=== PATIENT | male | born 1960 | race Two or more races ===

== ENCOUNTER 2024-09-29 10:37 | Inpatient (IN) | payer OTHER ==
[~2024-09-29] VITALS: Ht 172.7 cm; Wt 81.6 kg
[2024-09-29] MEDS ORDERED: FAMOTIDINE20 MG PO (11:02)
[2024-09-29] MEDS ORDERED: QUETIAPINE FUMA50 MG (11:02)
[2024-09-29] MEDS ORDERED: TAMSULOSIN HCL0.4 MG PO (11:02)
[2024-09-29] MEDS ORDERED: PIPERACILLIN/TAZOBACTAM SODIUM 3.375 GM VIAL IV ONE (11:30)
[2024-09-29] MEDS ORDERED: KETOROLAC TROMETHAMINE 60 MG VIAL IM ONE (11:30)
[2024-09-29] MEDS ORDERED: 0.9 % SODIUM CHLORIDE 1,000 ML IV SCH (11:30)
[2024-09-29 11:52] LABS: HEMOGLOBIN 16.8 g/dL (13-16.00); MEAN CELL VOLUME 90.5 fL (80.0-100.00); MEAN CORPUSCULAR HGB CONC 34.3 g/dl (32.0-36.0); PLATELET COUNT 259 K/uL (150-450); RED BLOOD COUNT 5.41 M/uL (4.00-6.00); RED CELL DISTRIBUTION WIDTH 14.5 % (11.5-14.5)
[2024-09-29 13:20] LABS: BILIRUBIN TOTAL 3.55 mg/dL (0.3-1.2); CALCIUM 9.6 mg/dL (8.5-10.1); CREATININE SERUM 1.21 mg/dL (0.70-1.30); GLOBULINA 3.9 G/DL (2.4-3.5); POTASSIUM 4.24 mEq/L (3.5-5.1); TOTAL PROTEIN 7.9 gm/dL (6.4-8.2)
[2024-09-29] MEDS ORDERED: PANTOPRAZOLE SODIUM 40 MG/VIAL VIAL IV SCH (15:40)
[2024-09-29] MEDS ORDERED: KETOROLAC TROMETHAMINE 30 MG VIAL IV PRN (15:45)
[2024-09-29] MEDS ORDERED: ONDANSETRON HCL 4 MG in 0.9 % SODIUM CHLORIDE 50 ML IV PRN (15:45)
[2024-09-29] MEDS ORDERED: MORPHINE SULFATE 4 MG/ML VIAL IV PRN (15:45)
[2024-09-29] MEDS ORDERED: RINGERS SOLUTION,LACTATED 1,000 ML IV SCH (15:45)
[2024-09-29] MEDS ORDERED: ENALAPRILAT DIHYDRATE 1.25 MG/ML VIAL IV PRN (15:45)
[2024-09-29] MEDS ORDERED: METRONIDAZOLE/SODIUM CHLORIDE 100 ML IV SCH (17:00)
[2024-09-29] MEDS ORDERED: MORPHINE SULFATE 4 MG/ML VIAL IV SCH (18:00)
[2024-09-29] MEDS ORDERED: CIPROFLOXACIN HCL 500 MG TABLET PO SCH (18:28)
[2024-09-29 19:25] LABS: CHOL HDL RATIO 2.4 (0-5.0)
[2024-09-29 19:33] LABS: INR 1.09; PARTIAL THROMBOPLASTIN TIME 25.2 SECONDS (22.0-34.0); PROTHROMBIN TIME 11.8 SECONDS (9.0-11.5)
[2024-09-29] MEDS ORDERED: MORPHINE SULFATE 4 MG/ML CARTRIDGE IV PRN (20:00)
[2024-09-29 20:35] VITALS: BP 151/69; O2SAT 95
[2024-09-30 03:27] VITALS: BP 147/83; O2SAT 94
[2024-09-30] MEDS ORDERED: ENOXAPARIN SODIUM 40 MG/0.4 ML SYRINGE SUBCUTANEO SCH (09:00)
[2024-09-30] MEDS ORDERED: CEFTRIAXONE SODIUM 2,000 MG VIAL IV SCH ×2 (09:00→17:00)
[2024-09-30] MEDS ORDERED: AMINO ACIDS 4.25 %/DEXTROSE 5% 1,000 ML PERIFERAL SCH (17:00)
[2024-09-30 18:27] VITALS: BP 146/85; O2SAT 97
[2024-10-01 00:51] VITALS: BP 127/75; O2SAT 94
[2024-10-01 04:58] LABS: URINE APPEARANCE Clear; URINE BILIRRUBIN Negative (NEGATIVE); URINE BLOOD Negative; URINE COLOR Dark Yellow; URINE GLUCOSE Negative (NEGATIVE); URINE KETONE Trace (NEGATIVE); URINE LEUKOCYTE Trace; URINE NITRATE Positive
[2024-10-01 05:01] LABS: URINE BACTERIA 14.6 uL (0.0-1933); URINE EPITHELIAL CELLS 19.1 uL (0.0-38.8); URINE RBC 26.9 uL (0.0-20.8); URINE WBC 23.1 uL (0.0-23.2)
[2024-10-01 05:10] LABS: URINE CAST 0.14 uL (0.0-1.40); URINE PROTEIN 100 (NEGATIVE)
[2024-10-01 07:56] LABS: ALBUMIN 2.9 gm/dL (3.4-5.0); BILIRUBIN TOTAL 1.34 mg/dL (0.3-1.2); CALCIUM 8.2 mg/dL (8.5-10.1); CREATININE SERUM 0.88 mg/dL (0.70-1.30); GFR 86.64; GLOBULINA 2.9 G/DL (2.4-3.5); HEMATOCRIT 43.6 % (39.0-48.0); HEMOGLOBIN 15.1 g/dL (13-16.00); MEAN CELL VOLUME 90.6 fL (80.0-100.00); MEAN CORPUSCULAR HEMOGLOBIN 31.3 pg (27.00-32.0); MEAN CORPUSCULAR HGB CONC 34.6 g/dl (32.0-36.0); PLATELET COUNT 173 K/uL (150-450); POTASSIUM 3.9 mEq/L (3.5-5.1); RED BLOOD COUNT 4.81 M/uL (4.00-6.00); RED CELL DISTRIBUTION WIDTH 14.4 % (11.5-14.5); TOTAL PROTEIN 5.8 gm/dL (6.4-8.2)
[2024-10-01 08:03] VITALS: BP 113/70
[2024-10-01] MEDS ORDERED: TAMSULOSIN HCL 0.4 MG CAP PO SCH (17:00)
[2024-10-01 17:46] VITALS: BP 127/74; O2SAT 97
[2024-10-02 01:12] VITALS: BP 124/72; O2SAT 98
[2024-10-02 07:25] LABS: HEMATOCRIT 44.7 % (39.0-48.0); HEMOGLOBIN 15.1 g/dL (13-16.00); MEAN CELL VOLUME 91.4 fL (80.0-100.00); MEAN CORPUSCULAR HEMOGLOBIN 30.9 pg (27.00-32.0); MEAN CORPUSCULAR HGB CONC 33.8 g/dl (32.0-36.0); PLATELET COUNT 159 K/uL (150-450); RED BLOOD COUNT 4.89 M/uL (4.00-6.00); RED CELL DISTRIBUTION WIDTH 14.3 % (11.5-14.5)
[2024-10-02 07:58] LABS: ALBUMIN 2.7 gm/dL (3.4-5.0); BILIRUBIN TOTAL 1.12 mg/dL (0.3-1.2); BILIRUBIN,CONJUGATED 0.3 mg/dL (0.0-0.2); BILIRUBIN,UNCONJUGATED 0.82 mg/dL (0.0-0.6); TOTAL PROTEIN 5.5 gm/dL (6.4-8.2)
[2024-10-02 09:08] VITALS: BP 138/78
[2024-10-02 17:16] VITALS: BP 137/74; O2SAT 97
[2024-10-03 00:19] VITALS: BP 114/68; O2SAT 95
[2024-10-03 06:59] LABS: HEMATOCRIT 42.7 % (39.0-48.0); HEMOGLOBIN 14.4 g/dL (13-16.00); MEAN CELL VOLUME 91.5 fL (80.0-100.00); MEAN CORPUSCULAR HEMOGLOBIN 30.8 pg (27.00-32.0); MEAN CORPUSCULAR HGB CONC 33.6 g/dl (32.0-36.0); PLATELET COUNT 181 K/uL (150-450); RED BLOOD COUNT 4.67 M/uL (4.00-6.00); RED CELL DISTRIBUTION WIDTH 14.2 % (11.5-14.5)
[2024-10-03 07:05] LABS: INR 1.24; PARTIAL THROMBOPLASTIN TIME 27.1 SECONDS (22.0-34.0); PROTHROMBIN TIME 13.3 SECONDS (9.0-11.5)
[2024-10-03 07:40] LABS: ALBUMIN 2.5 gm/dL (3.4-5.0); BILIRUBIN TOTAL 0.95 mg/dL (0.3-1.2); BILIRUBIN,CONJUGATED 0.39 mg/dL (0.0-0.2); BILIRUBIN,UNCONJUGATED 0.56 mg/dL (0.0-0.6); CALCIUM 8.2 mg/dL (8.5-10.1); CHOL HDL RATIO 2.8 (0-5.0); CREATININE SERUM 0.82 mg/dL (0.70-1.30); GLOBULINA 2.9 G/DL (2.4-3.5); POTASSIUM 3.79 mEq/L (3.5-5.1); TOTAL PROTEIN 5.4 gm/dL (6.4-8.2)
[2024-10-03 08:08] VITALS: BP 131/74
[2024-10-03 10:39] LABS: UREA CLEARANCE 74.5 ML/MIN
[2024-10-03] MEDS ORDERED: MORPHINE SULFATE 2 MG/ML SYRINGE IV PRN (16:00)
[2024-10-03] MEDS ORDERED: ONDANSETRON HCL 2 MG/ML VIAL IV PRN (17:45)
[2024-10-03] MEDS ORDERED: BUPIVACAINE HCL 30 ML VIAL IJ ONE (18:30)
[2024-10-03] MEDS ORDERED: ISOPROPYL ALCOHOL 30 ML OUNCE TOP ONE (18:30)
[2024-10-03] MEDS ORDERED: KETOROLAC TROMETHAMINE 30 MG VIAL IV PRN (19:30)
[2024-10-03] MEDS ORDERED: PIPERACILLIN/TAZOBACTAM SODIUM 3.375 GM VIAL IV SCH (20:00)
[2024-10-03 21:12] LABS: ALBUMIN 2.6 gm/dL (3.4-5.0); BILIRUBIN TOTAL 0.82 mg/dL (0.3-1.2); CREATININE SERUM 0.79 mg/dL (0.70-1.30); GFR 98.13; GLOBULINA 3.1 G/DL (2.4-3.5); POTASSIUM 3.64 mEq/L (3.5-5.1); TOTAL PROTEIN 5.7 gm/dL (6.4-8.2)
[2024-10-03 21:44] VITALS: BP 145/84
[2024-10-03] MEDS ORDERED: PANTOPRAZOLE SODIUM 40 MG/VIAL VIAL IV SCH (23:41)
[2024-10-04] MEDS ORDERED: METRONIDAZOLE/SODIUM CHLORIDE 100 ML IV SCH (01:00)
[2024-10-04 01:16] VITALS: BP 136/78; O2SAT 94
[2024-10-04] MEDS ORDERED: KETOROLAC TROMETHAMINE 30 MG VIAL IV PRN ×2 (03:21→10:28)
[2024-10-04 06:06] LABS: HEMATOCRIT 42.1 % (39.0-48.0); HEMOGLOBIN 14.5 g/dL (13-16.00); MEAN CORPUSCULAR HGB CONC 34.4 g/dl (32.0-36.0); PLATELET COUNT 211 K/uL (150-450); RED BLOOD COUNT 4.68 M/uL (4.00-6.00); RED CELL DISTRIBUTION WIDTH 14.6 % (11.5-14.5)
[2024-10-04 06:50] LABS: ALBUMIN 2.3 gm/dL (3.4-5.0); BILIRUBIN TOTAL 0.64 mg/dL (0.3-1.2); CALCIUM 7.9 mg/dL (8.5-10.1); CREATININE SERUM 0.75 mg/dL (0.70-1.30); GFR 104.19; POTASSIUM 3.98 mEq/L (3.5-5.1); TOTAL PROTEIN 5.3 gm/dL (6.4-8.2)
[2024-10-04 07:46] VITALS: BP 117/78; O2SAT 93
[2024-10-04] MEDS ORDERED: CEFTRIAXONE SODIUM 2,000 MG VIAL IV SCH (09:00)
[2024-10-04] MEDS ORDERED: OxyCODONE HCL/APAP UD (PERCOCET) PO PRN (10:30)
[2024-10-04 17:24] VITALS: BP 140/84; O2SAT 96
[2024-10-05 02:10] VITALS: BP 125/76; O2SAT 96
[2024-10-05 09:43] VITALS: BP 122/72; O2SAT 97
[2024-10-05] MEDS ORDERED: OXYC1TAB9 PO (11:41)
[2024-10-05] MEDS ORDERED: COLACE100 MG PO (12:22)
== END 2024-10-05 13:43 | disposition home or self-care (01) | DRG 418 ==
LOC: ER 10:37 → MEDJ 18:50 → MEDI 18:50 → MEDJ 09-30 14:22
PROVIDERS: Emergency Medicine; Internal Medicine; Surgery; ADMIT Internal Medicine; ATTEND Internal Medicine
PROC: BW40ZZZ Ultrasonography of Abdomen (ICD-10-PCS; 2024-09-29)
PROC: BW21Y0Z Computerized Tomography (CT Scan) of Abdomen and Pelvis using Other Contrast, Unenhanced and Enhanced (ICD-10-PCS; 2024-09-29)
PROC: BF37ZZZ Magnetic Resonance Imaging (MRI) of Pancreas (ICD-10-PCS; 2024-09-29)
PROC: 0WQF4ZZ Repair Abdominal Wall, Percutaneous Endoscopic Approach (ICD-10-PCS; 2024-10-03)
PROC: 0FT44ZZ Resection of Gallbladder, Percutaneous Endoscopic Approach (ICD-10-PCS; principal; 2024-10-03 18:00)
DX: K85.10 Biliary acute pancreatitis without necrosis or infection (principal); K80.00 Calculus of gallbladder with acute cholecystitis without obstruction; K80.10 Calculus of gallbladder with chronic cholecystitis without obstruction; K83.09 Other cholangitis; I10 Essential (primary) hypertension; R10.9 Unspecified abdominal pain; E80.6 Other disorders of bilirubin metabolism; R74.01 Elevation of levels of liver transaminase levels; K43.9 Ventral hernia without obstruction or gangrene